=== PATIENT | male | born 1940 | race Caucasian/White ===

== ENCOUNTER → 2017-05-03 | Outpatient (CLI) | payer OTHER ==
[~2017-05-03] MED LIST: PRAVASTATIN SOD40 MG PO; ZOCOR PO
--- NOTE | ~2017-05-03 | CT57 ---
[facility] A Service of [facility] RADIOLOGY TEXT RESULTS PATIENT: SONJA ROQUE LOCATION: [facility] : 42 UNIT #: [id number] AGE: [address]: Steve Colmenares MD SEX: M ORDER DR: [id number] [place] [id number] O MR#: [id number] Acc #: [id number] NAME: SONJA ROQUE : 1940 SEX: M STUDY DATE/TIME: 05/03/2017 12:51 UNIT: [facility] ROOM: STUDY DESCRIPTION: CT Chest Wo Cont Attending Physician: Steve Colmenares M.D. Referring Physician: Steve Colmenares M.D. Ordering Physician: Steve Colmenares M.D. Primary Care Physician: Steve Colmenares M.D. MEDICAL IMAGING REPORT This report is preliminary unless electronic signature is present. EXAM CT of the chest of contrast. INDICATION Abnormal chest radiograph in the patient's doctor's office. He was having an annual physical and apparently had a left lower lobe lung lesion. TECHNIQUE Axial CT images were obtained from the thoracic inlet through the dome of the diaphragm. No intravenous contrast was administered. FINDINGS The patient does have background emphysematous changes. No suspicious noncalcified pulmonary nodules or masses are seen. The thyroid gland and trachea appear within normal limits. There is a small hiatal hernia. Patient does have some coronary artery calcifications. There is no pleural or pericardial effusion. Thoracic aorta measures within normal size limits. Shotty mediastinal lymph nodes are noted. Subcarinal lymph node measures up to about 2.7 x 1.1 cm. Images through the upper abdomen do not demonstrate any acute abnormalities. There is colonic diverticulosis without any definite evidence of diverticulitis within the visualized segments of the bowel. Review of bone windows does not demonstrate any aggressive osseous abnormalities. IMPRESSION No pulmonary nodules or masses are seen to account for the described abnormality seen on the radiograph performed at the patient's physician's office. Lungs appear clear. No suspicious pulmonary nodules or masses are identified. Patient does have a mildly prominent subcarinal lymph node of uncertain clinical significance. It certainly could reflect a benign reactive node. Patient does have background emphysematous changes, STS. [facility] A Service of [facility] RADIOLOGY TEXT RESULTS PATIENT: SONJA ROQUE LOCATION: [facility] : 42 UNIT #: [id number] AGE: [address]: Steve Colmenares MD SEX: M ORDER DR: and short-term CT followup in 6 months could be considered to document stability. No acute abnormalities are seen within the upper abdomen. Dictated by... Leeanne Jose M.D. THIS IS AN ELECTRONICALLY VERIFIED REPORT Leeanne Jose M.D. at 05/03/2017 4:42 PM AFF/js TD: 05/03/2017 16:17 JOB #: [id number] MEDICAL IMAGING REPORT Page 1 of 1
== END | disposition home or self-care (01) ==
LOC: SCT 12:44
DX: R91.1 Solitary pulmonary nodule (principal)
CPT/HCPCS: 71250